=== PATIENT | male | born 1960 | race African-American/Black ===

== ENCOUNTER 2016-12-07 22:33 | Outpatient (CLI) | payer OTHER | END 2016-12-07 22:34 | disposition critical access hospital (66) | LOC: EMS 22:33 | PROVIDERS: ATTEND Surgery | DX: R07.9 Chest pain, unspecified (principal); R06.00 Dyspnea, unspecified | CPT/HCPCS: A0425; A0427 ==

== ENCOUNTER 2016-12-07 23:14 | Observation (INO) | payer OTHER ==
[2016-12-07 23:54] LABS: BASOPHILS % (AUTO) 0.8 %; EOSINOPHILS # (AUTO) 0.1 10^3/uL (0.0-0.7); EOSINOPHILS % (AUTO) 2.3 %; HCT - HEMATOCRIT 43.9 % (42.0-52.0); HGB - HEMOGLOBIN 14.8 g/dL (14.0-18.0); LYMPHOCYTES % (AUTO) 43.3 %; MEAN CORPUSCULAR HEMOGLOBIN 30.6 pg (27.0-31.0); MEAN CORPUSCULAR HGB CONC 33.6 g/dL (32.0-36.0); MEAN CORPUSCULAR VOLUME 91.1 fL (80.0-94.0); MONOCYTES # (AUTO) 0.4 10^3/uL (0.0-1.0); MONOCYTES % (AUTO) 7.7 %; NEUTROPHILS # (AUTO) 2.1 10^3/uL (1.5-6.6); NEUTROPHILS % (AUTO) 45.9 %; NUCLEATED RED BLOOD CELLS AUTO 0.1 /100WBC; RED BLOOD COUNT 4.82 10^6/uL (4.70-6.10); RED CELL DISTRIBUTION WIDTH 13.3 % (12.0-15.0); UNCORRECTED WHITE BLOOD COUNT 4.6 x10^3/uL; WHITE BLOOD COUNT 4.6 x10^3/uL (4.8-10.8)
[2016-12-08 00:07] LABS: ALBUMIN/GLOBULIN RATIO 1.4 (1.0-2.2); BILIRUBIN,TOTAL 0.9 mg/dL (0.2-1.0); CALCIUM 8.5 mg/dL (8.5-10.3); CREATININE 0.9 mg/dL (0.6-1.2); POTASSIUM 3.7 mmol/L (3.5-5.0); TOTAL PROTEIN 6.6 g/dL (6.7-8.2)
[2016-12-08] MEDS ORDERED: IOPAMIDOL-300 100 ML VIAL IVP ONE (00:47)
[2016-12-08] MEDS ORDERED: IOPAMIDOL-300 100 ML VIAL ONE (00:50)
--- NOTE | 2016-12-08 01:18 | ED Physician Documentation ---
PD HPI CHEST PAIN - Stated complaint Stated Complaint: CP - Chief complaint Chief Complaint: Cardiac - History obtained from History obtained from: Patient, EMS - History of Present Illness Timing - onset: Yesterday Timing - onset during: Rest, Light activity, Exertion Timing - details: Gradual onset, Intermittant Quality: Pressure, Tightness Location: Substernal, Left chest Improved by: Rest Worsened by: Exertion Associated symptoms: Shortness of air. No: Diaphoresis, Nausea, Feeling faint / dizzy, General Weakness, Palpitations Similar symptoms before: Work up / diagnostics, Treatment Recently seen: Not recently seen - Additional information Additional information: Patient is a 56 year old male with a history chf, that patient states resolved who is presenting to the emergency department for chest pressure. patient states that he has not been feeling well for the last few days and today he had worsening chest pressure atient states that the pain is worse with exertion and better at rest. Patient states that the symptoms were persisting so he called called ems. Upon initial evaluation by ems patient was found to be hypoxic on room air. Patient was treated with nitro and had already taken his aspirin. Review of Systems Constitutional: denies: Fever, Chills, Myalgias Eyes: denies: Photophobia Ears: denies: Ear pain, Drainage/discharge Nose: denies: Congestion, Epistaxis Throat: denies: Dental pain / toothache, Oral lesions / sores, Sore throat Cardiac: reports: Chest pain / pressure. denies: Palpitations, Calf pain Respiratory: denies: Dyspnea, Cough GI: denies: Nausea, Vomiting, Constipation, Diarrhea : reports: Reviewed and negative Skin: reports: Reviewed and negative Musculoskeletal: denies: Extremity pain, Extremity swelling, Joint swelling Neurologic: denies: Headache, Head injury, LOC Immunocompromised: denies: Immunocompromised PD PAST MEDICAL HISTORY - Past Medical History Past Medical History: Yes Cardiovascular: Congestive heart failure Respiratory: None Neuro: None Endocrine/Autoimmune: None GI: None : None HEENT: None Psych: None Musculoskeletal: Chronic back pain Derm: None - Past Surgical History Past Surgical History: Yes - Allergies Allergies/Adverse Reactions: Allergies Allergy/AdvReac Type Severity Reaction Status Date / Time No Known Drug Allergies Allergy Verified 12/08/16 02:14 - Social History Does the pt smoke?: Yes Smoking Status: Former smoker Does the pt drink ETOH?: Yes ETOH Use: Beer Does the pt have substance abuse?: No - Immunizations Immunizations are current?: Yes PD ED PE NORMAL - Vitals Vital signs reviewed: Yes - General General: Alert and oriented X 3, No acute distress - HEENT HEENT: Atraumatic, PERRL - Neck Neck: Supple, no meningeal sign, No JVD - Cardiac Cardiac: RRR, No murmur - Respiratory Respiratory: No respiratory distress - Abdomen Abdomen: Soft, Non tender, Non distended - Derm Derm: Normal color, Warm and dry, No rash - Extremities Extremities: No deformity, No edema, No calf tenderness / cord - Neuro Neuro: Alert and oriented X 3, No motor deficit, No sensory deficit, Normal speech - Psych Psych: Normal mood, Normal affect Results - Vitals Vitals: Vital Signs - 24 hr 12/07/16 12/08/16 12/08/16 23:22 00:41 01:33 Temperature 36.3 C L Heart Rate 99 91 91 Respiratory 20 20 18 Rate Blood Pressure 158/76 H 154/85 H 145/79 H O2 Saturation 91 L 94 96 Oxygen O2 Source Room air Oxygen Flow Rate 3 - EKG (time done) 2328 Rate: Rate (enter#) (94) Rhythm: NSR [place]: Normal Ischemia: T wave inversion Compare to prior EKG: Old EKG unavailable - Labs Labs: Laboratory Tests 12/07/16 12/07/16 12/07/16 00:49 00:49 00:49 WBC 4.6 L RBC 4.82 Hgb 14.8 Hct 43.9 MCV 91.1 MCH 30.6 MCHC 33.6 RDW 13.3 Plt Count 208 MPV 9.0 Neut # 2.1 Lymph # 2.0 Petroleum # 0.4 Eos # 0.1 Baso # 0.0 Absolute Nucleated RBC 0.00 Nucleated RBC % 0.1 Sodium Potassium Chloride Carbon Dioxide Anion Gap BUN Creatinine Estimated GFR (MDRD) Glucose Calcium Total Bilirubin AST ALT Alkaline Phosphatase Troponin I 0.04 B-Natriuretic Peptide 318 H Total Protein Albumin Globulin Albumin/Globulin Ratio Lipase Urine Color Urine Clarity Urine pH Ur Specific Loop Urine Protein Urine Glucose (UA) Urine Ketones Urine Occult Blood Urine Nitrite Urine Bilirubin Urine Urobilinogen Ur Leukocyte Esterase Ur Microscopic Review Urine Culture Comments 12/07/16 12/08/16 00:49 00:46 WBC RBC Hgb Hct MCV MCH MCHC RDW Plt Count MPV Neut # Lymph # Petroleum # Eos # Baso # Absolute Nucleated RBC Nucleated RBC % Sodium 136 Potassium 3.7 Chloride 104 Carbon Dioxide 23 Anion Gap 9.0 BUN 23 H Creatinine 0.9 Estimated GFR (MDRD) 105 Glucose 109 H Calcium 8.5 Total Bilirubin 0.9 AST 26 ALT 34 Alkaline Phosphatase 45 Troponin I B-Natriuretic Peptide Total Protein 6.6 L Albumin 3.9 Globulin 2.7 Albumin/Globulin Ratio 1.4 Lipase 17 L Urine Color YELLOW Urine Clarity CLEAR Urine pH 6.[address] 1.015 Urine Protein NEGATIVE Urine Glucose (UA) NEGATIVE Urine Ketones NEGATIVE Urine Occult Blood NEGATIVE Urine Nitrite NEGATIVE Urine Bilirubin NEGATIVE Urine Urobilinogen 0.2 (NORMAL) Ur Leukocyte Esterase NEGATIVE Ur Microscopic Review NOT INDICATED Urine Culture Comments NOT INDICATED PD MEDICAL DECISION MAKING - ED course Complexity details: reviewed old records, reviewed results, re-evaluated patient , considered differential, d/w patient ED course: Patient was seen and examined at bedside. patient was well appearing and had already been treated with aspirin. ekg was performed and showed inverted twaves in the lateral leads. Due to the chest pain and hypoxia, PE study was ordered and turned out to be negative. patient's original troponin was negative but patient had a heart score of 4 and was placed in observation for further evaluation and care. Departure - Departure Disposition: ED Place in Observation Clinical Impression: Chest pain, Congestive heart failure Condition: Good
--- NOTE | 2016-12-08 01:19 | CT Preliminary Report ---
Exam: CT Chest Angio (PE) IMPRESSION: 1. No pulmonary emboli. 2. Mild left heart failure. [facility] SITE ID: [id number]
--- NOTE | 2016-12-08 01:29 | CT Report ---
EXAM: CT ANGIOGRAM CHEST EXAM DATE: 12/08/2016 12:54 AM. CLINICAL HISTORY: Chest pain, hypoxia. COMPARISON: None. TECHNIQUE: Routine helical imaging was performed through the chest in the pulmonary arterial phase. I V Contrast: 80 mL Isovue 300. Reconstructions: Coronal 3D MIP reconstructions.Sagittal and coronal. In accordance with CT protocol optimization, one or more of the following dose reduction techniques w ere utilized for this exam: automated exposure control, adjustment of mA and/or KV based on patient s ize, or use of iterative reconstructive technique. FINDINGS: Pulmonary Arteries: Technically adequate for evaluation through the segmental arteries. No evidence f or acute or chronic pulmonary emboli. Lungs/Pleura: interlobular septal thickening with ground-glass opacities, likely reflecting pulmonary edema. Trace effusions. Mediastinum: No acute aortic syndrome. Left heart enlargement. No adenopathy. Upper Abdomen: Unremarkable with exception of probable left liver cysts. Other: None. IMPRESSION: 1. No pulmonary emboli. 2. Mild left heart failure. [facility] Referring Provider Line: [phone] SITE ID: [id number]
[2016-12-08] MEDS ORDERED: SODIUM CHLORIDE FLUSH 0.9% 10 ML SYRINGE IVP PRN ×2 (02:02→02:13)
[2016-12-08] MEDS ORDERED: ONDANSETRON 4 MG/2 ML VIAL IVP PRN ×2 (02:02→02:13)
[2016-12-08] MEDS ORDERED: ACETAMINOPHEN 325 MG TABLET PO PRN ×2 (02:02→02:13)
[2016-12-08 02:08] LABS: BILIRUBIN,URINE NEGATIVE (NEGATIVE); UA CHARGE (STRIP ONLY) YES; UR CULTURE IF IND NOT INDICATED
[2016-12-08] MEDS ORDERED: PANTOPRAZOLE 40 MG VIAL IVP SCH ×2 (02:13→07:00)
[2016-12-08] MEDS ORDERED: ENOXAPARIN 40 MG/0.4 ML SYRINGE SUBQ SCH ×2 (02:13→09:00)
[2016-12-08] MEDS ORDERED: POLYETHYLENE GLYCOL 3350 17 GM PACKET PO SCH ×2 (02:13→09:00)
[2016-12-08] MEDS ORDERED: MORPHINE 2 MG/ML SYRINGE IVP PRN (02:14)
[2016-12-08] MEDS ORDERED: NITROGLYCERIN SL 0.4 MG TABLET SL PRN (02:14)
[2016-12-08 05:46] LABS: BASOPHILS % (AUTO) 0.7 %; EOSINOPHILS # (AUTO) 0.1 10^3/uL (0.0-0.7); EOSINOPHILS % (AUTO) 1.1 %; HCT - HEMATOCRIT 45.4 % (42.0-52.0); HGB - HEMOGLOBIN 15.2 g/dL (14.0-18.0); LYMPHOCYTES % (AUTO) 30.7 %; MEAN CORPUSCULAR HEMOGLOBIN 30.9 pg (27.0-31.0); MEAN CORPUSCULAR HGB CONC 33.5 g/dL (32.0-36.0); MEAN CORPUSCULAR VOLUME 92.4 fL (80.0-94.0); MEAN PLATELET VOLUME 9.2 fL (7.4-11.4); MONOCYTES # (AUTO) 0.5 10^3/uL (0.0-1.0); MONOCYTES % (AUTO) 7.9 %; NEUTROPHILS # (AUTO) 3.8 10^3/uL (1.5-6.6); NEUTROPHILS % (AUTO) 59.6 %; NUCLEATED RED BLOOD CELLS AUTO 0.1 /100WBC; RED BLOOD COUNT 4.91 10^6/uL (4.70-6.10); RED CELL DISTRIBUTION WIDTH 13.1 % (12.0-15.0); UNCORRECTED WHITE BLOOD COUNT 6.4 x10^3/uL; WHITE BLOOD COUNT 6.4 x10^3/uL (4.8-10.8)
[2016-12-08 05:54] LABS: ALBUMIN/GLOBULIN RATIO 1.4 (1.0-2.2); BILIRUBIN,TOTAL 1.3 mg/dL (0.2-1.0); CALCIUM 8.6 mg/dL (8.5-10.3); CREATININE 0.8 mg/dL (0.6-1.2); TOTAL PROTEIN 6.6 g/dL (6.7-8.2)
[2016-12-08] MEDS ORDERED: SODIUM CHLORIDE FLUSH 0.9% 10 ML SYRINGE IVP SCH (06:00)
[2016-12-08] MEDS: SODIUM CHLORIDE FLUSH 0.9% 10 ML SYRINGE IVP SCH ×2 (06:27→14:14)
[2016-12-08 06:31] LABS: PLATELET ESTIMATE, MANUAL NORMAL (130-450,000) (NORMAL); PLATELET MORPHOLOGY NORMAL APPEARANCE (NORMAL)
--- NOTE | 2016-12-08 06:53 | HISTORY & PHYSICAL EXAMINATION ---
DATE OF OBSERVATION: 12/08/2016. TIME: 3 a.m. CODE STATUS: FULL CODE. PRIMARY CARE PHYSICIAN: He has no primary care provider. EXAM LIMITATIONS: None. RECORDS REVIEWED: Yes. SOURCE OF INFORMATION: The patient. CHIEF COMPLAINT: Chest pain with shortness of breath. ADVANCED DIRECTIVE: No. HISTORY OF PRESENT ILLNESS: The patient, a 56-year-old black male, began having shortness of breath and pressure on the chest that became progressively worse over a 3-day period. The shortness of breath and chest pain began at 12 a.m., three days ago. He had diaphoresis, but he had no nausea or vomiting. He stated that when he took some nitroglycerin, it did relieve some of the chest pressure. DRUG ALLERGIES: NONE. MEDICATIONS: None. PAST MEDICAL HISTORY: None. FAMILY HISTORY: Father with diabetes mellitus. Mother, endometrial cancer. SOCIAL HISTORY: He is . He has 2 children. 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 He smoked 1 pack per day for 15 years and quit in 1993. His alcohol history is social. He has no recreational drug abuse. He lives at home with his . PAST SURGICAL HISTORY: Lower back surgery and bone fragment removed from his right elbow. REVIEW OF SYSTEMS RESPIRATORY: He has a nonproductive cough and shortness of breath. HEART: Pressure on the chest. ABDOMEN: No constipation, no diarrhea, no bloating, no nausea, no vomiting. URINARY SYSTEM: Frequency. HEAD: No headaches. EYES: No blurred vision. EARS: No ear pain. NOSE: No runny nose. THROAT: No pain or redness. MUSCULOSKELETAL: Proximal muscle weakness. JOINTS: Right and left knee pain. NEUROLOGICAL: No dementia. No limb weakness. WEAKNESS AND FATIGUE: Yes. FEVER: No. PHYSICAL EXAMINATION VITAL SIGNS: Temperature of 36.3, pulse of 99, respiratory rate of 20, blood pressure of 158/76, and O2 saturation of 96% on room air. GENERAL: He is alert and cooperative. HEENT: His head is atraumatic, normocephalic. Eyes are PERRLA, EOMI. NECK: Supple. No JVD. No bruits, no thyroid enlargement. No adenopathy. HEART: Regular rate and rhythm. LUNGS: Clear to auscultation. ABDOMEN: Positive for bowel sounds, soft, nontender. No rebound, no guarding. EXTREMITIES: Warm. No edema, +2 pedal pulses. He has 5/5 muscle strength in upper and lower extremities. NEUROLOGIC: He is oriented x3, follows commands, moves all 4 extremities. Cranial nerves 2-12 are intact. LABORATORY DATA: On labs, his sodium is 136, potassium is 3.7, chloride is 104, bicarbonate is 23, BUN is 23, creatinine 0.9, glucose is 109. Glomerular filtration rate is 105. White blood cells are 4.6, hemoglobin 14.8, hematocrit is 43.9, platelets are 208,000. AST is 26, ALT is 34, alkaline phosphatase is 45 , lipase is 17. BNP is 318. EKG findings are T-wave inversions in lateral leads. ASSESSMENT AND PLAN: Chest pain that needs to be ruled out for myocardial infarction. He will be on telemetry in observation. He will get troponins q.6h. x2, sublingual nitroglycerin, and morphine sulfate p.r.n. chest pain, aspirin. His acute diastolic congestive heart failure will be treated with Lasix, lisinopril and he will get an echocardiogram. His hypertension will be treated with Metoprolol tartrate and lisinopril. He will get IV Zofran for p.r.n. nausea. His hyperlipidemia will be treated with atorvastatin. He will receive subcutaneously Lovenox for his DVT prophylaxis. He will be on IV Protonix to prevent stress ulcer. His anticipated length of stay will be 2 days. JOB #: [id number] EXT JOB #:[id number] SHANTHI
[2016-12-08 07:46] VITALS: BP 146/71
[2016-12-08] MEDS: METOPROLOL TARTRATE 25 MG TABLET PO SCH ×2 (08:33→14:14)
[2016-12-08] MEDS ORDERED: ASPIRIN CHEW 81 MG TABLET PO SCH (09:00)
[2016-12-08] MEDS ORDERED: FUROSEMIDE 20 MG/2 ML VIAL IVP SCH (09:00)
[2016-12-08] MEDS ORDERED: LISINOPRIL 5 MG TABLET PO SCH ×2 (09:00)
--- NOTE | 2016-12-08 09:05 | XRAY Report ---
TWO-VIEW CHEST: 12/08/2016 CLINICAL INDICATION: Chest pain. COMPARISON: CT 12/08/2016. FINDINGS: Frontal and lateral views of the chest demonstrate a normal cardiac silhouette. Patchy ba silar air-space disease is again seen which may represent alveolar edema. No effusion or pneumothora x is present. IMPRESSION: PATCHY BASILAR AIR-SPACE DISEASE, WHICH MAY REPRESENT ALVEOLAR EDEMA. JOB #: [id number] EXT JOB #:[id number]
--- NOTE | 2016-12-08 14:16 | Discharge Plan ---
Discharge Plan Disposition: 01 Home, Self Care Condition: Stable Prescriptions: Nitroglycerin [Nitrostat] 0.4 mg SL Q5MIN PRN #10 tablet PRN Reason: Chest Pain Aspirin [Adult Low Dose Aspirin EC] 81 mg PO DAILY #6 tablet. Atorvastatin Calcium [Lipitor] 40 mg PO DAILY #6 tablet Lisinopril 5 mg PO DAILY #6 tablet Metoprolol Tartrate [Lopressor] 25 mg PO QID #24 tablet Diet: Cardiac Activity Restrictions: Activity as Tolerated Shower Restrictions: No Weight Bearing: Full Weight Additional Instructions or Follow Up instructions: May see PCP in 3-4 days, see sales promotion representative in one week. Should symptoms return or worsen, call 911 or go to ER for help. No Smoking: If you smoke, Please STOP! Call for help.
--- NOTE | 2016-12-08 14:36 | DISCHARGE SUMMARY ---
Discharge Summary Admit Date: 12/08/16 Discharge Date: 12/08/16 Discharging Provider: JIANG Primary Care Provider: Corwin Diaz Condition at Discharge: Stable Discharge Disposition: 01 Home, Self Care Discharge Facility Name: home - DIAGNOSES Admission Diagnoses: 1,chest pain 2, Medical non-compliant 3, CHF 4, HTN 5, HLP Discharge Diagnoses with Status of Each Condition: 1,chest pain pt denies any more chest pain, palpitation, SOB. Serial troponin test negative, EKG unchanged 2, Medical non-compliance pt report he did not take any medications at home pt is advised medical compliance 3, CHF pt did not have any his home meds ECHO done today reveals decrease of EF and increase left ventricular enlargement. Pt is advised to follow up handle and vent machine operator closely, to do out-patient stress test, since our stress test is not on scheduled yet. Pt state he will make appointment to see handle and vent machine operator on tomorrow. Pt report he saw handle and vent machine operator in [facility] handle and vent machine operator group before. I called [facility] handle and vent machine operator group for referral and follow up. I called Dr.Peter Pickard. 4, HTN pt did not take his BP meds for long time, he did not remember which meds he took prescript BP meds to pt, advise pt follow up PCP very closely 5, HLP pt did not take any home for HLP, prescript meds and advise pt follow up PCP very closely. - HPI History of Present Illness: please refer from Dr. Quintana's HPI on 12/08/16 - HOSPITAL COURSE Hospital Course: pt was admitted for chest pain to R/O ACS. Pt report he did not take any medications at home. pt denies chest pain today, no SOB, no other distress at all. Troponin serial is negative in three times. EKG is unchanged from admission. ECHO done today reveals decrease of EF and increase left ventricular enlargement. Pt is advised to follow up handle and vent machine operator closely, to do out-patient stress test, since our stress test service is not on scheduled yet. Pt state he will make appointment to see handle and vent machine operator on tomorrow. Pt report he saw handle and vent machine operator in [facility] handle and vent machine operator group before. I called [facility] handle and vent machine operator and called Dr.Peter Pickard to report pt's conditions and referral. - ALLERGIES Allergies/Adverse Reactions: Allergies Allergy/AdvReac Type Severity Reaction Status Date / Time No Known Drug Allergies Allergy Verified 12/08/16 02:14 - MEDICATIONS Home Medications: Ambulatory Orders Medication Instructions Recorded Confirmed Aspirin [Adult Low Dose Aspirin EC] 81 mg PO DAILY #6 tablet. 12/08/16 Atorvastatin Calcium [Lipitor] 40 mg PO DAILY #6 tablet 12/08/16 Lisinopril 5 mg PO DAILY #6 tablet 12/08/16 Metoprolol Tartrate [Lopressor] 25 mg PO QID #24 tablet 12/08/16 Nitroglycerin [Nitrostat] 0.4 mg SL Q5MIN PRN #10 tablet 12/08/16 - PHYSICAL EXAM AT DISCHARGE General Appearance: positive: No acute distress, Alert. negative: Lethargic Eyes Bilateral: positive: Normal inspection, PERRL, EOMI, No lid inflammation, Conjunctivae nml ENT: positive: ENT inspection nml, Pharynx nml, No signs of dehydration. negative: Purulent nasal drainage, Pharyngeal erythema, Oral lesions Neck: positive: Nml inspection, Thyroid nml, No JVD, Trachea midline. negative : Thyromegaly, Lymphadenopathy (R), Lymphadenopathy (L), Stiff neck, Carotid bruit, Swelling/bruising, Tracheal deviation Respiratory: positive: Chest non-tender, No respiratory distress, Breath sounds nml. negative: Wheezes, Rales, Rhonchi Cardiovascular: positive: Regular rate & rhythm, No murmur, No gallop. negative : Irregularly irregular, Extrasystoles, Tachycardia, Bradycardia, Systolic murmur, Diastolic murmur Peripheral Pulses: positive: 2+ Abdomen: positive: Non-tender, Nml bowel sounds, No distention. negative: Tenderness, Guarding, Rebound Back: positive: Nml inspection. negative: CVA tenderness (R), CVA tenderness (L ) Skin: positive: Color nml, No rash, Warm, Dry. negative: Cyanosis, Diaphoresis , Pallor, Skin rash Extremities: positive: Non-tender, Full ROM, Nml appearance. negative: Calf tenderness, Joint swelling, Niurka's sign/cords Neurologic/Psychiatric: positive: Oriented x3, Motor nml, Sensation nml, Mood/ affect nml. negative: Sensory loss, Facial droop, Slurred/abnml speech, Depressed mood/affect - LABS Result Diagrams: 12/08/16 05:17 12/08/16 05:17 - FOLLOW UP Follow Up: pt is advised to follow up PCP in 3-4 days, and see handle and vent machine operator in one week, and follow up stress test as out-pt. Pt did not take any home meds. 5 meds are prescribed to pt I called [facility] handle and vent machine operator and called Dr.Peter Pickard to report pt's conditions and referral.
[2016-12-08] MEDS ORDERED: ATORVASTATIN 40 MG TABLET PO SCH (21:00)
== END 2016-12-08 14:43 | disposition home or self-care (01) ==
LOC: EDUNIT# → ED 23:14 → OBS 12-08 02:02
PROVIDERS: ATTEND Nurse Practitioner Gerontology
DX: R07.9 Chest pain, unspecified (principal); I11.0 Hypertensive heart disease with heart failure; I50.31 Acute diastolic (congestive) heart failure; T50.906A Underdosing of unspecified drugs, medicaments and biological substances, initial encounter; Z91.14 Patient's other noncompliance with medication regimen; E78.5 Hyperlipidemia, unspecified; Z87.891 Personal history of nicotine dependence
CPT/HCPCS: 36415; 71020; 71275; 80053; 81003; 83690; 83880; 84484; 85025; 93005; 93306; 96372; 96374; 96375; 99284; 99285; A9270; G0378; J1650; Q9967; 81001; 87086

== ENCOUNTER 2017-01-24 15:20 | Outpatient (CLI) | payer OTHER | END 2017-01-24 15:21 | disposition short-term general hospital (02) | LOC: EMS 15:20 | PROVIDERS: ATTEND Surgery | DX: R07.9 Chest pain, unspecified (principal) | CPT/HCPCS: A0425; A0427 ==

== ENCOUNTER 2018-07-08 21:16 | Emergency (ER) | payer OTHER ==
--- NOTE | 2018-07-08 21:27 | ED Physician Documentation ---
PD HPI CHEST PAIN - Stated complaint Stated Complaint: CP - Chief complaint Chief Complaint: Cardiac - History obtained from History obtained from: Patient - History of Present Illness Timing - onset: How many hours ago (1) Timing - details: Gradual onset, Waxing and waning Pain level max: 3 Pain level now: 0 Quality: Pressure Location: Substernal Radiation: No: Jaw, Neck, Back, Abdominal, Left upper extremity, Right upper extremity Improved by: ASA (seemed to improve after taking 81mg ASA x 2) Worsened by: Exertion Associated symptoms: Shortness of air. 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 He went inside and rested but symptoms persisted. He took 81mg ASA without relief but felt symptoms resolved after a second dose of 81 mg ASA. He says he has had milder, similar episodes over past week. T+R from this ED November 2016; he says he f/u with rotary screen printing machine operator and was "given the option" (per patient) of a stress test, but he declined. Review of Systems Constitutional: reports: Reviewed and negative Cardiac: reports: Chest pain / pressure, Pedal edema. denies: Palpitations, Calf pain Respiratory: reports: Dyspnea. denies: Cough, Hemoptysis, Wheezing GI: reports: Reviewed and negative Skin: reports: Reviewed and negative Musculoskeletal: reports: Extremity swelling (mild LLE swelling x weeks). denies: Neck pain, Back pain Neurologic: reports: Reviewed and negative PD PAST MEDICAL HISTORY - Past Medical History Cardiovascular: Congestive heart failure Respiratory: None Endocrine/Autoimmune: None GI: None : None HEENT: None Psych: None Musculoskeletal: Chronic back pain Derm: None - Past Surgical History Past Surgical History: Yes - Present Medications Home Medications: Ambulatory Orders Medication Instructions Recorded Confirmed Aspirin [Adult Low Dose Aspirin EC] 81 mg PO DAILY #6 tablet. 12/08/16 Lisinopril 5 mg PO DAILY #6 tablet 12/08/16 07/08/18 Carvedilol 12.5 mg PO 07/08/18 Furosemide [Lasix] 20 mg PO DAILY #5 tablet 07/09/18 - Allergies Allergies/Adverse Reactions: Allergies Allergy/AdvReac Type Severity Reaction Status Date / Time No Known Drug Allergies Allergy Verified 07/08/18 21:53 - Social History Does the pt smoke?: Yes Smoking Status: Former smoker Does the pt drink ETOH?: Yes Does the pt have substance abuse?: No - Immunizations Immunizations are current?: Yes PD ED PE NORMAL - Vitals Vital signs reviewed: Yes - General General: Alert and oriented X 3, No acute distress, Well developed/nourished - HEENT HEENT: Moist mucous membranes - Neck Neck: Supple, no meningeal sign - Cardiac Cardiac: RRR, No murmur, No gallop, No rub - Respiratory Respiratory: No respiratory distress - Abdomen Abdomen: Soft, Non tender - Derm Derm: Normal color, Warm and dry - Extremities Extremities: No edema PD ED PE EXPANDED - Respiratory Respiratory: Rales (mild bibasilar rales) Results - Vitals Vitals: Vital Signs - 24 hr 07/08/18 07/08/18 07/08/18 21:21 22:00 22:02 Temperature 36.6 C Heart Rate 93 85 86 Respiratory 16 16 18 Rate Blood Pressure 156/100 H 144/94 H 144/94 H O2 Saturation 98 98 94 07/09/18 00:01 Temperature Heart Rate 77 Respiratory 14 Rate Blood Pressure 142/83 H O2 Saturation 97 Oxygen O2 Source Room air - EKG (time done) No standard instances Rate: Rate (enter#) (91) Rhythm: NSR, LAE [place]: Normal Intervals: Normal [place] QRS: LVH Ischemia: T wave inversion (I, AVL, V4-V6), Non specific changes (V4-V6) Compare to prior EKG: Unchanged from prior EKG (No significant change comparecd to 12/07/16 (including V4-V6 and I and aVL findings)) - Labs Labs: Laboratory Tests 07/08/18 07/08/18 07/08/18 21:45 21:45 21:45 WBC 4.2 L RBC 4.52 L Hgb 14.1 Hct 41.5 L MCV 91.7 MCH 31.1 H MCHC 33.9 RDW 13.4 Plt Count 226 MPV 9.1 Neut # (Auto) 2.2 Lymph # (Auto) 1.6 Brooke # (Auto) 0.3 Eos # (Auto) 0.1 Baso # (Auto) 0.0 Absolute Nucleated RBC 0.00 Nucleated RBC % 0.1 D-Dimer Sodium 134 L Potassium 4.1 Chloride 106 Carbon Dioxide 20 L Anion Gap 8.0 BUN 23 H Creatinine 0.9 Estimated GFR (MDRD) 104 Glucose 94 Calcium 8.4 L Total Bilirubin 0.9 AST 88 H ALT 94 H Alkaline Phosphatase 55 Troponin I 0.04 B-Natriuretic Peptide Total Protein 7.1 Albumin 3.9 Globulin 3.2 Albumin/Globulin Ratio 1.2 Lipase 19 L 07/08/18 07/08/18 07/08/18 21:45 21:45 23:46 WBC RBC Hgb Hct MCV MCH MCHC RDW Plt Count MPV Neut # (Auto) Lymph # (Auto) [place]oke # (Auto) Eos # (Auto) Baso # (Auto) Absolute Nucleated RBC Nucleated RBC % D-Dimer 270.3 H Sodium Potassium Chloride Carbon Dioxide Anion Gap BUN Creatinine Estimated GFR (MDRD) Glucose Calcium Total Bilirubin AST ALT Alkaline Phosphatase Troponin I < 0.04 B-Natriuretic Peptide 418 H Total Protein Albumin Globulin Albumin/Globulin Ratio Lipase - Rads (name of study) chest xray Radiology: Prelim report reviewed, See rad report PD MEDICAL DECISION MAKING - ED course Complexity details: reviewed old records, reviewed results, re-evaluated patient, considered differential, d/w patient Departure - Departure Disposition: 01 Home, Self Care Clinical Impression: Chest pain Condition: Good Instructions: ED Chest Pain Atypical Unkn Cause Follow-Up: JAMAAL GARCÍA MD [Primary Care Provider] - Prescriptions: Furosemide [Lasix] 20 mg PO DAILY #5 tablet Discharge Date/Time: 07/09/18 00:29
[2018-07-08 21:56] LABS: BASOPHILS % (AUTO) 0.9 %; EOSINOPHILS # (AUTO) 0.1 10^3/uL (0.0-0.7); EOSINOPHILS % (AUTO) 2.1 %; HGB - HEMOGLOBIN 14.1 g/dL (14.0-18.0); LYMPHOCYTES # (AUTO) 1.6 10^3/uL (1.5-3.5); LYMPHOCYTES % (AUTO) 37.3 %; MEAN CORPUSCULAR HEMOGLOBIN 31.1 pg (27.0-31.0); MEAN CORPUSCULAR HGB CONC 33.9 g/dL (32.0-36.0); MEAN CORPUSCULAR VOLUME 91.7 fL (80.0-94.0); MEAN PLATELET VOLUME 9.1 fL (7.4-11.4); MONOCYTES # (AUTO) 0.3 10^3/uL (0.0-1.0); MONOCYTES % (AUTO) 6.9 %; NEUTROPHILS # (AUTO) 2.2 10^3/uL (1.5-6.6); NEUTROPHILS % (AUTO) 52.8 %; PLT - PLATELET COUNT 226 10^3/uL (130-450); RED BLOOD COUNT 4.52 10^6/uL (4.70-6.10); RED CELL DISTRIBUTION WIDTH 13.4 % (12.0-15.0); WHITE BLOOD COUNT 4.2 x10^3/uL (4.8-10.8)
[2018-07-08 22:14] LABS: ALBUMIN 3.9 g/dL (3.2-5.5); ALBUMIN/GLOBULIN RATIO 1.2 (1.0-2.2); BILIRUBIN,TOTAL 0.9 mg/dL (0.2-1.0); CALCIUM 8.4 mg/dL (8.5-10.3); CREATININE 0.9 mg/dL (0.6-1.2); TOTAL PROTEIN 7.1 g/dL (6.7-8.2)
--- NOTE | 2018-07-08 22:20 | XRAY Report ---
Reason: chest pain Procedure Date: 07/08/2018 Accession Number: [id number] / [id number] Procedure: XR - Chest 2 View X-Ray CPT Code: 09086 FULL RESULT: EXAM: CHEST RADIOGRAPHY EXAM DATE: 07/08/2018 09:58 PM. CLINICAL HISTORY: Chest pain. COMPARISON: CHEST 2 VIEW PA/LAT 12/08/2016 8:19 AM. TECHNIQUE: 2 views. FINDINGS: Lungs/Pleura: Minimal interstitial changes noted at the right lung base similar to the prior study. No acute infiltrates. Mediastinum: Heart and mediastinal contours are unremarkable. Other: None. IMPRESSION: 1. Minimal interstitial changes at the right lung base, stable. No acute infiltrates. [facility]
[2018-07-08] MEDS ORDERED: FUROSEMIDE 40 MG/4 ML VIAL IVP STA (22:36)
[2018-07-09 00:03] VITALS: BP 142/83
== END 2018-07-09 00:29 | disposition home or self-care (01) ==
LOC: ED 21:16
DX: R07.89 Other chest pain (principal); I51.7 Cardiomegaly; Z87.891 Personal history of nicotine dependence; Z79.82 Long term (current) use of aspirin
CPT/HCPCS: 36415; 71046; 80053; 83690; 83880; 84484; 85025; 85379; 93005; 96374; 99284

== ENCOUNTER 2021-01-14 01:24 | Emergency (ER) | payer OTHER ==
[2021-01-14] MEDS ORDERED: KETOROLAC 30 MG/ML VIAL IM STA (01:38)
[2021-01-14] MEDS ORDERED: methocarbamoL 500 MG TABLET PO STA (01:38)
--- NOTE | 2021-01-14 01:44 | ED Physician Documentation ---
History of Present Illness - Stated complaint Stated Complaint: R SHOULDER PX - Chief complaint Chief Complaint: Ext Problem - History obtained from History obtained from: Patient - Additonal information Additional information: 60yM presents with R shoulder pain upon waking from sleep yesterday morning, constant throughout the day, aching, radiating down the R arm, worse with pressing on the pectoral and shoulder area and with ROM. patient went to work yesterday and it waxed and waned in severity. it was about 5/10 when he went to bed tonight. 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 denies prior shoulder issues. denies mechanism for injury this time. Review of Systems Musculoskeletal: reports: Extremity pain, Joint pain PD PAST MEDICAL HISTORY - Past Medical History Past Medical History: Yes Cardiovascular: Congestive heart failure Respiratory: None Endocrine/Autoimmune: None GI: None : None HEENT: None Psych: None Musculoskeletal: Chronic back pain Derm: None - Past Surgical History Past Surgical History: Yes - Present Medications Home Medications: Ambulatory Orders Medication Instructions Recorded Confirmed Aspirin [Adult Low Dose Aspirin EC] 81 mg PO DAILY #6 tablet. 12/08/16 lisinopriL [Lisinopril] 5 mg PO DAILY #6 tablet 12/08/16 07/08/18 Carvedilol 12.5 mg PO 07/08/18 Furosemide [Lasix] 20 mg PO DAILY #5 tablet 07/09/18 Ketorolac [Toradol] 10 mg PO Q6H PRN #30 tablet 01/14/21 - Allergies Allergies/Adverse Reactions: Allergies Allergy/AdvReac Type Severity Reaction Status Date / Time No Known Drug Allergies Allergy Verified 01/14/21 01:34 - Social History Does the pt smoke?: Yes Smoking Status: Current every day smoker Does the pt drink ETOH?: Yes Does the pt have substance abuse?: No - Immunizations Immunizations are current?: Yes PD ED PE NORMAL - Vitals Vital signs reviewed: Yes - General General: Alert and oriented X 3, No acute distress, Well developed/nourished - HEENT HEENT: Atraumatic, PERRL, EOMI - Derm Derm: Normal color, Warm and dry - Extremities Extremities: No deformity, Other (tender with ROM of R shoulder. 2+ BL radial pulses. normal strength and cap refill. nontender to R arm or forearm. normal ROM at elbow and wrist) Results - Vitals Vitals: Vital Signs - 24 hr 01/14/21 01/14/21 01:25 01:37 Temperature 36.0 C L 36.1 C L Heart Rate 84 84 Respiratory 16 16 Rate Blood Pressure 142/73 H 142/73 H O2 Saturation 99 99 Oxygen O2 Source Room air PD MEDICAL DECISION MAKING - ED course ED course: 60yM p/w R shoulder strain, likely after sleeping on it badly two nights ago. denies chest pain or shortness of breath, and pain is reproducible with palpation of pectoralis muscle and with ROM of shoulder. advised symptomatic care, NSAIDs, rest, and f/u with pmd. return precauitons given. Departure - Departure Clinical Impression: Right shoulder strain Condition: Good Instructions: ED Sprain Shoulder Prescriptions: Ketorolac [Toradol] 10 mg PO Q6H PRN #30 tablet PRN Reason: Pain Comments: You were seen in the emergency department after pulling a muscle in your shoulder. Please follow up with your primary doctor this week. return to the emergency department for any new or worsening symptoms or other concerns. Do not take toradol within 6 hours of other NSAIDS (naproxen, aspirin, ibuprofen, motrin, advil).
[2021-01-14 02:34] VITALS: BP 141/72
--- NOTE | 2021-01-14 07:28 | XRAY Report ---
PROCEDURE: Shoulder 2 View RT INDICATIONS: shoulder pain since yesterday TECHNIQUE: 2 views of the shoulder were acquired. COMPARISON: None. FINDINGS: Bones: No acute fractures or dislocations. No suspicious bony lesions. Visualized ribs appear inta ct. Degenerative changes of the right acromioclavicular joint. Soft tissues: No suspicious soft tissue calcifications. IMPRESSION: Right shoulder without acute fracture or dislocation. Degenerative changes of the acromi oclavicular joint. No significant discrepancy with initial interpretation by overnight radiologist. Reviewed by: Remigio Mcnair MD on 01/14/2021 7:26 AM PST Approved by: Remigio Mcnair MD on 01/14/2021 7:26 AM PST Station ID: [id number]
== END 2021-01-14 02:33 | disposition home or self-care (01) ==
LOC: ED 01:24
DX: S46.911A Strain of unspecified muscle, fascia and tendon at shoulder and upper arm level, right arm, initial encounter (principal); X58.XXXA Exposure to other specified factors, initial encounter; F17.200 Nicotine dependence, unspecified, uncomplicated
CPT/HCPCS: 73030; 96372; 99283; A9270

== ENCOUNTER 2021-02-18 07:17 | Outpatient (CLI) | payer OTHER ==
--- NOTE | 2021-02-18 11:05 | MRI Report ---
PROCEDURE: Shoulder RT W/O INDICATIONS: PAIN IN RIGHT SHOULDER TECHNIQUE: Noncontrast oblique coronal T2 fast spin echo with fat saturation, oblique sagittal T1 spin echo and T2 fast spin echo with fat saturation, axial T1 spin echo and T2 fast spin echo with fat saturation t hrough the shoulder. COMPARISON: None. Findings: Supraspinatus: Mild tendinopathy with small, partial articular surface tear at the humeral attachment . Infraspinatus: Mild tendinopathy without evidence of tear. Subscapularis: No evidence of tear. Teres minor: No evidence of tear. Labrum: Signal within the anterior, inferior labrum (50 1-12), which may reflect degenerative change/ tear. Biceps tendon: No evidence of subluxation or tear. Acromioclavicular joint: Mild degeneration. Muscle: Grade 1/2 atrophy of the supraspinatous. Bones: T2 hyperintense/T1 hypointense signal seen in the anterior humeral head, compatible with contu leilani. No distinct fracture line. Miscellaneous: No glenohumeral joint effusion. Minimal subacromial/subdeltoid bursal fluid. No intra-articular bodies. Intact coracoclavicular ligament. IMPRESSION: 1. Mild supraspinatus tendinopathy with small partial articular surface tear. 2. Mild infraspinatus tendinopathy. 3. Degenerative change/tear of the anterior, inferior labrum. 4. Mild AC joint degeneration. 5. Contusion in the anterior humeral head. Reviewed by: Terrence Timmons MD on 02/18/2021 11:03 AM PST Approved by: Terrence Timmons MD on 02/18/2021 11:03 AM PST Station ID: [id number]
== END 2021-02-18 07:18 | disposition home or self-care (01) ==
LOC: DI 07:17
PROVIDERS: ATTEND Student in an Organized Health Care Education/Training Program
DX: M19.011 Primary osteoarthritis, right shoulder (principal); S40.021A Contusion of right upper arm, initial encounter; M75.91 Shoulder lesion, unspecified, right shoulder

== ENCOUNTER 2021-04-22 07:35 | Emergency (ER) | payer OTHER ==
--- NOTE | 2021-04-22 07:54 | ED Physician Documentation ---
PD HPI ABD PAIN - Stated complaint Stated Complaint: ABD PX, CHEST PX, SOA - Chief complaint Chief Complaint: Cardiac - History obtained from History obtained from: Patient PD PAST MEDICAL HISTORY - Past Medical History Cardiovascular: Congestive heart failure Respiratory: None Endocrine/Autoimmune: None GI: None : None HEENT: None Psych: None Musculoskeletal: Chronic back pain Derm: None - Past Surgical History Past Surgical History: Yes - Present Medications Home Medications: Ambulatory Orders Medication Instructions Recorded Confirmed Aspirin [Adult Low Dose Aspirin EC] 81 mg PO DAILY #6 tablet.dr 12/08/16 04/22/21 lisinopriL [Lisinopril] 5 mg PO DAILY #6 tablet 12/08/16 04/22/21 Carvedilol 12.5 mg PO DAILY 07/08/18 04/22/21 Furosemide [Lasix] 20 mg PO DAILY #5 tablet 07/09/18 04/22/21 Ketorolac [Toradol] 10 mg PO Q6H PRN #30 tablet 01/14/21 04/22/21 - Allergies Allergies/Adverse Reactions: Allergies Allergy/AdvReac Type Severity Reaction Status Date / Time No Known Drug Allergies Allergy Verified 04/22/21 07:46 - Social History Does the pt smoke?: Yes Smoking Status: Current every day smoker Does the pt drink ETOH?: Yes Does the pt have substance abuse?: No - Immunizations Immunizations are current?: Yes Results - Vitals Vitals: Vital Signs - 24 hr 04/22/21 07:43 Temperature 36.4 C L Heart Rate 105 H Respiratory 18 Rate Blood Pressure 171/117 H O2 Saturation 98 Oxygen O2 Source Room air
[2021-04-22 08:07] LABS: BASOPHILS % (AUTO) 0.5 %; EOSINOPHILS # (AUTO) 0.1 10^3/uL (0.0-0.7); EOSINOPHILS % (AUTO) 1.2 %; HCT - HEMATOCRIT 48.7 % (42.0-52.0); HGB - HEMOGLOBIN 16.2 g/dL (14.0-18.0); LYMPHOCYTES # (AUTO) 1.3 10^3/uL (1.5-3.5); MEAN CORPUSCULAR HEMOGLOBIN 30.7 pg (27.0-31.0); MEAN CORPUSCULAR HGB CONC 33.3 g/dL (32.0-36.0); MEAN CORPUSCULAR VOLUME 92.4 fL (80.0-94.0); MEAN PLATELET VOLUME 10.9 fL (7.4-11.4); MONOCYTES # (AUTO) 0.4 10^3/uL (0.0-1.0); MONOCYTES % (AUTO) 9.4 %; NEUTROPHILS # (AUTO) 2.3 10^3/uL (1.5-6.6); NEUTROPHILS % (AUTO) 56.7 %; PLT - PLATELET COUNT 267 10^3/uL (130-450); RED BLOOD COUNT 5.27 10^6/uL (4.70-6.10); RED CELL DISTRIBUTION WIDTH 12.7 % (12.0-15.0); WHITE BLOOD COUNT 4.1 x10^3/uL (4.8-10.8)
--- NOTE | 2021-04-22 08:26 | ED Physician Documentation ---
PD HPI DYSPNEA - Stated complaint Stated Complaint: ABD PX, CHEST PX, SOA - Chief complaint Chief Complaint: Cardiac - History obtained from History obtained from: Patient - History of Present Illness Timing - onset: How many days ago (few) Timing - onset during: Light activity, Other (lying flat) Timing - duration: Days (few) Timing - details: Gradual onset, Still present Inciting event(s): No: Out of meds, URI Improved by: Rest, Sitting up Worsened by: Exertion, Laying flat Associated symptoms: Bilateral edema. No: Fever, Cough, Wheezing, Chest pain / discomfort, Palpitations Similar symptoms before: Diagnosis (CHF exacerbations infrequently in the past.) Review of Systems Constitutional: denies: Fever, Chills Nose: denies: Rhinorrhea / runny nose, Congestion Throat: denies: Sore throat Cardiac: reports: Pedal edema. denies: Chest pain / pressure, Palpitations, Calf pain Respiratory: reports: Dyspnea. denies: Cough, Wheezing GI: reports: Abdominal Pain (ruq area), Nausea. denies: Vomiting, Diarrhea, Bloody / black stool Skin: denies: Rash, Lesions Musculoskeletal: reports: Extremity swelling Neurologic: reports: Generalized weakness. denies: Focal weakness, Numbness PD PAST MEDICAL HISTORY - Past Medical History Past Medical History: Yes Cardiovascular: Congestive heart failure (hypertensive cardiomyopathy with LVH and global hypokinesis, EF 40-45% on ECHO 2017.) Respiratory: None Neuro: None Endocrine/Autoimmune: None GI: None : None HEENT: None Psych: None Musculoskeletal: Chronic back pain Derm: None - Past Surgical History Past Surgical History: Yes - Present Medications Home Medications: Ambulatory Orders Medication Instructions Recorded Confirmed Aspirin [Adult Low Dose Aspirin EC] 81 mg PO DAILY #6 tablet. 12/08/16 04/22/21 lisinopriL [Lisinopril] 5 mg PO DAILY #6 tablet 12/08/16 04/22/21 Carvedilol 12.5 mg PO DAILY 07/08/18 04/22/21 Furosemide [Lasix] 20 mg PO DAILY #5 tablet 07/09/18 04/22/21 Ketorolac [Toradol] 10 mg PO Q6H PRN #30 tablet 01/14/21 04/22/21 - Allergies Allergies/Adverse Reactions: Allergies Allergy/AdvReac Type Severity Reaction Status Date / Time No Known Drug Allergies Allergy Verified 04/22/21 07:46 - Social History Does the pt smoke?: Yes Smoking Status: Current every day smoker Does the pt drink ETOH?: Yes Does the pt have substance abuse?: No - Immunizations Immunizations are current?: Yes - POLST Patient has POLST: No PD ED PE NORMAL - Vitals Vital signs reviewed: Yes - General General: Alert and oriented X 3, Well developed/nourished, Other (appears uncomfortable breathing, but able to talk sentences. Orthopneic and wants bed elevated sitting up. ) - HEENT HEENT: Pharynx benign - Neck Neck: Supple, no meningeal sign, No adenopathy, No bruit, Other (JVD noted semi- reclined.) - Cardiac Cardiac: RRR (mild tachycardic), No murmur - Respiratory Respiratory: No: Clear bilaterally (no coarse sounds. Has fine crackles both bases. ) - Abdomen Abdomen: Normal bowel sounds, Soft, Non distended, Other (some tender without percussion nor rebound RUQ area. ) - Back Back: No CVA TTP - Derm Derm: Normal color, Warm and dry - Extremities Extremities: No calf tenderness / cord, Other (1+ edema in both lower legs and ankles. ) - Neuro Neuro: Alert and oriented X 3, No motor deficit, Normal speech Results - Vitals Vitals: Oxygen O2 Source Room air - EKG (time done) 07:39 Rate: Rate (enter#) (106) Rhythm: Sinus tachycardia [place]: Normal QRS: LVH Ischemia: ST depression (more c/w LVH), Non specific changes. No: ST elevation c/w ischemia Compare to prior EKG: Old EKG unavailable - Labs Labs: Laboratory Tests 04/22/21 04/22/21 04/22/21 07:50 07:50 07:50 WBC 4.1 L RBC 5.27 Hgb 16.2 Hct 48.7 MCV 92.4 MCH 30.7 MCHC 33.3 RDW 12.7 Plt Count 267 MPV 10.9 Neut # (Auto) 2.3 Lymph # (Auto) 1.3 L [place] # (Auto) 0.4 Eos # (Auto) 0.1 Baso # (Auto) 0.0 Absolute Nucleated RBC 0.00 Nucleated RBC % 0.0 Sodium 136 Potassium 4.0 Chloride 105 Carbon Dioxide 22 Anion Gap 9.0 BUN 27 H Creatinine 0.9 Estimated GFR (MDRD) 104 Glucose 117 H Calcium 8.7 Magnesium Total Bilirubin 1.5 H AST 36 ALT 57 Alkaline Phosphatase 50 Troponin I High Sens 43.0 H* B-Natriuretic Peptide Total Protein 7.3 Albumin 4.1 Globulin 3.2 Albumin/Globulin Ratio 1.3 Lipase 23 04/22/21 04/22/21 04/22/21 07:50 07:50 09:41 WBC RBC Hgb Hct MCV MCH MCHC RDW Plt Count MPV Neut # (Auto) Lymph # (Auto) [place] # (Auto) Eos # (Auto) Baso # (Auto) Absolute Nucleated RBC Nucleated RBC % Sodium Potassium Chloride Carbon Dioxide Anion Gap BUN Creatinine Estimated GFR (MDRD) Glucose Calcium Magnesium 2.4 Total Bilirubin AST ALT Alkaline Phosphatase Troponin I High Sens 44.3 H* B-Natriuretic Peptide 433 H Total Protein Albumin Globulin Albumin/Globulin Ratio Lipase - Rads (name of study) chest xray Radiology: Prelim report reviewed (vascular congesiton), See rad report ruq abd u/s Radiology: Prelim report reviewed (normal gallbladder. No acute findings. ), See rad report PD MEDICAL DECISION MAKING - ED course Complexity details: reviewed results (chest xray c/w vascular congestion. RUQ U/S without GB problems. ), considered differential (seems like acute pulmonary edema and is improved with diuresis here. History of same episodically. Does not seem like major edema generally, so consider acute hypertensive effect on output. RUQ pain presume liver congestion and pain. No other acute process seen. ), d/w patient Departure - Departure Disposition: 01 Home, Self Care Clinical Impression: Abdominal discomfort in right upper quadrant Acute exacerbation of CHF (congestive heart failure) Qualifiers: Heart failure type: unspecified Qualified Code(s): I50.9 - Heart failure, unspecified Condition: Stable Record reviewed to determine appropriate education?: Yes Instructions: ED CHF General Comments: Your chest x-ray in blood test to correspond with no exacerbation of the CHF. You seem to be doing a bit better here with increased diuretic. I would continue usual medications with the addition of a second dose of your furosemide around noon or early afternoon in addition to the morning dose. Othe r medicines as usual. Your blood tests and ultrasound did not show any signs of gallbladder or pancreas or liver problems. Your discomfort may relate to some vascular congestion of the liver in conjunction with the CHF. That should improve with the diuretics as well. No signs of acute heart injury or other significant problems at this time. Recheck if not consistently improved over the next few days. Discharge Date/Time: 04/22/21 10:42
[2021-04-22] MEDS ORDERED: FUROSEMIDE 40 MG/4 ML VIAL IVP STA (08:27)
[2021-04-22] MEDS ORDERED: METOPROLOL 5 MG/5 ML VIAL IVP STA (08:28)
--- NOTE | 2021-04-22 08:31 | XRAY Report ---
PROCEDURE: Chest 1 View X-Ray INDICATIONS: Chest pain TECHNIQUE: One view of the chest was acquired. COMPARISON: 07/08/2018. FINDINGS: Surgical changes and devices: None. Lungs and pleura: No pleural effusions or pneumothorax. Mild interstitial prominence. Mediastinum: Mediastinal contours appear normal. Heart is mildly enlarged. Bones and chest wall: No suspicious bony lesions. Overlying soft tissues appear unremarkable. IMPRESSION: Mild bilateral interstitial prominence concerning for pulmonary edema or atypical pneumonia. Reviewed by: Yesenia Bailon MD, PhD on 04/22/2021 8:29 AM PST Approved by: Yesenia Bailon MD, PhD on 04/22/2021 8:29 AM [facility] Station ID: [id number]
[2021-04-22 08:32] LABS: ALBUMIN 4.1 g/dL (3.2-5.5); ALBUMIN/GLOBULIN RATIO 1.3 (1.0-2.2); BILIRUBIN,TOTAL 1.5 mg/dL (0.2-1.0); CALCIUM 8.7 mg/dL (8.5-10.3); CREATININE 0.9 mg/dL (0.6-1.2); TOTAL PROTEIN 7.3 g/dL (6.7-8.2)
[2021-04-22 09:50] VITALS: BP 143/93
--- NOTE | 2021-04-22 09:59 | Ultrasound Report ---
PROCEDURE: Abdomen Limited INDICATIONS: Right upper quadrant abdominal discomfort TECHNIQUE: Real-time focused scanning was performed of the abdomen, with image documentation. COMPARISON: None. FINDINGS: There are areas of increased hepatic parenchymal echogenicity indicative of geographic steatosis. The re are two simple cysts in the liver measuring approximately 1.5 cm. No solid liver mass. No intrahepatic or extrahepatic biliary ductal dilatation. Normal appearance of the gallbladder with no cholelithiasis or findings of cholecystitis. Visualized portions of the pancreas are normal. Right kidney unremarkable. IMPRESSION: No acute finding or finding to explain abdominal pain. Geographic hepatic steatosis. Reviewed by: Shyam Jhaveri MD on 04/22/2021 9:57 AM PST Approved by: Shyam Jhaveri MD on 04/22/2021 9:57 AM PST Station ID: [id number]
== END 2021-04-22 10:42 | disposition home or self-care (01) ==
LOC: ED 07:35
DX: I11.0 Hypertensive heart disease with heart failure (principal); I43 Cardiomyopathy in diseases classified elsewhere; I50.9 Heart failure, unspecified; F17.200 Nicotine dependence, unspecified, uncomplicated
CPT/HCPCS: 36415; 80053; 83690; 83735; 83880; 84484; 85025; 93005; 96374; 96375; 99284

== ENCOUNTER 2021-05-23 16:35 | Emergency (ER) | payer OTHER ==
--- NOTE | 2021-05-23 17:02 | ED Physician Documentation ---
PD HPI CHEST PAIN - Stated complaint Stated Complaint: CP,ABD PX - Chief complaint Chief Complaint: Cardiac - History obtained from History obtained from: Patient - Additional information Additional information: 61-year-old gentleman with history of congestive heart failure. He does not really know why. No history of ischemic heart disease and no valvular disease that he knows about. He does have longstanding hypertension. He is a former smoker having quit about 25 years ago. For the last 2 weeks he has had upper abdominal and chest pain that he describes as a pressure. It is worse when la cherise flat and worse with exertion. He is short of breath with it. It has become progressive, lasting longer and more frequent. At the beginning it was not every day, now it is frankly most of the day. He has been in pain since 130 last night pretty consistently. Review of Systems Ten Systems: 10 systems reviewed and negative Constitutional: denies: Fever, Chills, Fatigue Cardiac: reports: Chest pain / pressure. denies: Palpitations, Pedal edema, Calf pain Respiratory: reports: Dyspnea. denies: Cough, Hemoptysis, Wheezing PD PAST MEDICAL HISTORY - Past Medical History Cardiovascular: Congestive heart failure (hypertensive cardiomyopathy with LVH and global hypokinesis, EF 40-45% on ECHO 2017.) Respiratory: None Neuro: None Endocrine/Autoimmune: None GI: None : None HEENT: None Psych: None Musculoskeletal: Chronic back pain Derm: None - Past Surgical History Past Surgical History: Yes - Present Medications Home Medications: Ambulatory Orders Medication Instructions Recorded Confirmed Aspirin [Adult Low Dose Aspirin EC] 81 mg PO DAILY #6 tablet. 12/08/16 04/22/21 lisinopriL [Lisinopril] 5 mg PO DAILY #6 tablet 12/08/16 04/22/21 Carvedilol 12.5 mg PO DAILY 07/08/18 04/22/21 Furosemide [Lasix] 20 mg PO DAILY #5 tablet 07/09/18 04/22/21 Ketorolac [Toradol] 10 mg PO Q6H PRN #30 tablet 01/14/21 04/22/21 - Allergies Allergies/Adverse Reactions: Allergies Allergy/AdvReac Type Severity Reaction Status Date / Time No Known Drug Allergies Allergy Verified 05/23/21 16:48 - Social History Does the pt smoke?: Yes Smoking Status: Current every day smoker Does the pt drink ETOH?: Yes Does the pt have substance abuse?: No - Immunizations Immunizations are current?: Yes - POLST Patient has POLST: No PD ED PE NORMAL - Vitals Vital signs reviewed: Yes - General General: Alert and oriented X 3, No acute distress - HEENT HEENT: PERRL, EOMI - Neck Neck: Supple, no meningeal sign, No bony TTP - Cardiac Cardiac: RRR, Other (4 out of 6 blowing holosystolic slightly decrescendo murmur heard best at the apex) - Respiratory Respiratory: No respiratory distress, Clear bilaterally - Abdomen Abdomen: Non tender - Back Back: No CVA TTP, No spinal TTP - Derm Derm: Normal color, Warm and dry - Extremities Extremities: No edema, No calf tenderness / cord - Neuro Neuro: Alert and oriented X 3, Normal speech Results - Vitals Vitals: Vital Signs - 24 hr 05/23/21 05/23/21 05/23/21 16:42 16:49 19:57 Temperature 36.2 C L 36.5 C Heart Rate 88 88 85 Respiratory 16 16 17 Rate Blood Pressure 168/103 H 168/103 H 157/96 H O2 Saturation 99 99 97 Oxygen O2 Source Room air - EKG (time done) 1706 Rate: Rate (enter#) (89) Rhythm: NSR Intervals: LBBB Compare to prior EKG: Unchanged from prior EKG (No significant change from April 22 of this year.) Computer interpretation: Agree with computer - Labs Labs: Laboratory Tests 05/23/21 05/23/21 05/23/21 17:06 17:06 17:06 WBC 5.1 RBC 5.28 Hgb 16.5 Hct 48.2 MCV 91.3 MCH 31.3 H MCHC 34.2 RDW 12.8 Plt Count 279 MPV 10.5 Neut # (Auto) 2.6 Lymph # (Auto) 1.9 [place] # (Auto) 0.5 Eos # (Auto) 0.1 Baso # (Auto) 0.0 Absolute Nucleated RBC 0.00 Nucleated RBC % 0.0 Sodium 136 Potassium 4.0 Chloride 103 Carbon Dioxide 24 Anion Gap 9.0 BUN 26 H Creatinine 0.9 Estimated GFR (MDRD) 103 Glucose 93 Calcium 9.4 Total Bilirubin 1.1 H AST 22 ALT 49 Alkaline Phosphatase 59 Troponin I High Sens 27.7 H* B-Natriuretic Peptide Total Protein 7.5 Albumin 4.6 Globulin 2.9 Albumin/Globulin Ratio 1.6 Lipase 22 05/23/21 17:06 WBC RBC Hgb Hct MCV MCH MCHC RDW Plt Count MPV Neut # (Auto) Lymph # (Auto) [place] # (Auto) Eos # (Auto) Baso # (Auto) Absolute Nucleated RBC Nucleated RBC % Sodium Potassium Chloride Carbon Dioxide Anion Gap BUN Creatinine Estimated GFR (MDRD) Glucose Calcium Total Bilirubin AST ALT Alkaline Phosphatase Troponin I High Sens B-Natriuretic Peptide 438 H Total Protein Albumin Globulin Albumin/Globulin Ratio Lipase PD MEDICAL DECISION MAKING - ED course ED course: 61-year-old gentleman with progressive symptoms that are concerning for angina. His EKG is unchanged and his biomarkers are only slightly elevated. Discussed with him that the murmur is new and this is concerning in the setting of his symptoms and he probably needs a more thorough ACS work-up with echocardiography. We do not have the ability to do stresses or echo in the near future. Megan is called for potential transfer around 6:45 PM No bed was immediately available and the patient became impatient with waiting. I set expectations that unfortunately during due to staffing shortages, sometimes transfer times are unfortunately long. He decided to leave AMA. He understands and verbalizes back to me the risks of , disability, heart attack. He signed the AMA form. He does plan to seek further evaluation and treatment and was given a copy of his labs and EKG to aid in this. Departure - Departure Disposition: Against Medical Advice Clinical Impression: Unstable angina, Newly recognized murmur Condition: Serious Comments: You were seen today for progressive chest pain, worried that you have what is ca lled unstable angina. We also noted that your have an apparently new malignant sounding murmur. Work-up demonstrates a chest x-ray which is basically unremarkable. I am giving you a copy of your EKG. Lab work was notable for a normal CBC: White count 5.1, hemoglobin 16.5, hematocrit 48.2, platelet count 279 and normal differential. Chemistry panels were notable for sodium 136, potassium 4.0, chloride 103, carbon dioxide 24, BUN 26, creatinine 0.9, glucose 93, normal liver function enzymes and lipase. Troponin was elevated at 27.7. Are high end of normal is 19.7, but when you were here a month ago was actually higher at 43 and 44. BNP is elevated at 438. We are waiting for a bed at a tertiary facility with cardiology coverage since we do not have echocardiogram capabilities nor ability for cardiology consult and have decided to sign out AGAINST MEDICAL ADVICE. I urged you to seek further evaluation and treatment by what ever means necessary sooner rather than later.
[2021-05-23] MEDS: ASPIRIN CHEW 81 MG TABLET PO STA (17:06)
[2021-05-23 17:12] LABS: BASOPHILS % (AUTO) 0.6 %; EOSINOPHILS # (AUTO) 0.1 10^3/uL (0.0-0.7); HCT - HEMATOCRIT 48.2 % (42.0-52.0); HGB - HEMOGLOBIN 16.5 g/dL (14.0-18.0); LYMPHOCYTES # (AUTO) 1.9 10^3/uL (1.5-3.5); LYMPHOCYTES % (AUTO) 37.6 %; MEAN CORPUSCULAR HEMOGLOBIN 31.3 pg (27.0-31.0); MEAN CORPUSCULAR HGB CONC 34.2 g/dL (32.0-36.0); MEAN CORPUSCULAR VOLUME 91.3 fL (80.0-94.0); MEAN PLATELET VOLUME 10.5 fL (7.4-11.4); MONOCYTES # (AUTO) 0.5 10^3/uL (0.0-1.0); NEUTROPHILS # (AUTO) 2.6 10^3/uL (1.5-6.6); NEUTROPHILS % (AUTO) 50.6 %; PLT - PLATELET COUNT 279 10^3/uL (130-450); RED BLOOD COUNT 5.28 10^6/uL (4.70-6.10); RED CELL DISTRIBUTION WIDTH 12.8 % (12.0-15.0); WHITE BLOOD COUNT 5.1 x10^3/uL (4.8-10.8)
[2021-05-23 17:35] LABS: ALBUMIN 4.6 g/dL (3.2-5.5); ALBUMIN/GLOBULIN RATIO 1.6 (1.0-2.2); BILIRUBIN,TOTAL 1.1 mg/dL (0.2-1.0); CALCIUM 9.4 mg/dL (8.5-10.3); CREATININE 0.9 mg/dL (0.6-1.2); TOTAL PROTEIN 7.5 g/dL (6.7-8.2)
--- NOTE | 2021-05-23 17:52 | XRAY Report ---
PROCEDURE: Chest 1 View X-Ray INDICATIONS: Chest Pain TECHNIQUE: One view of the chest was acquired. COMPARISON: 04/22/2021 FINDINGS: Surgical changes and devices: None. Lungs and pleura: No pleural effusions or pneumothorax. Lungs are clear. Mediastinum: Mediastinal contours appear normal. Heart size is mildly enlarged. Bones and chest wall: No suspicious bony lesions. Overlying soft tissues appear unremarkable. IMPRESSION: No acute cardiopulmonary pathology. Reviewed by: Jose Husain MD on 05/23/2021 5:50 PM PDT Approved by: Jose Husain MD on 05/23/2021 5:50 PM PDT Station ID: [id number]
[2021-05-23] MEDS: ENOXAPARIN 80 MG/0.8 ML SYRINGE SUBQ STA (18:54)
[2021-05-23] MEDS: METOPROLOL TARTRATE 50 MG TABLET PO STA (18:55)
[2021-05-23 19:58] VITALS: BP 157/96
== END 2021-05-23 18:50 | disposition left against medical advice (07) ==
LOC: ED 16:35
DX: I20.0 Unstable angina (principal); R01.1 Cardiac murmur, unspecified; I11.0 Hypertensive heart disease with heart failure; I50.9 Heart failure, unspecified; F17.200 Nicotine dependence, unspecified, uncomplicated; Z20.822 Contact with and (suspected) exposure to COVID-19
CPT/HCPCS: 36415; 71045; 80053; 83690; 83880; 84484; 85025; 87635; 93005; 96372; 99284; A9270; J1650